=== PATIENT | female | born 1975 | race Caucasian/White ===

== ENCOUNTER 2021-01-05 14:34 | Emergency (ER) | payer MEDICAID ==
[~2021-01-05] VITALS: Ht 154.9 cm; Wt 59.1 kg
[2021-01-05 14:39] VITALS: BP 142/76
[2021-01-05] MEDS ORDERED: ACET-3385 PO (14:39)
[2021-01-05] MEDS ORDERED: ACETAMINOPHEN 325 MG TABLET PO ONE (16:15)
[2021-01-05 16:26] LABS: COVID AG,FIA SOURCE NASOPHARYNGEAL
== END 2021-01-05 16:30 | disposition home or self-care (01) ==
LOC: EMS 14:34
DX: M79.10 Myalgia, unspecified site (principal); R68.83 Chills (without fever); Z20.822 Contact with and (suspected) exposure to COVID-19; Z88.0 Allergy status to penicillin
CPT/HCPCS: 87426; 99283; C9803; U0003

== ENCOUNTER 2021-10-01 20:43 | Emergency (ER) | payer MEDICAID ==
[~2021-10-01] VITALS: Ht 165.1 cm; Wt 76.0 kg
[~2021-10-01 20:43] MED LIST: ACET-3385 PO
[2021-10-01 21:06] VITALS: BP 129/81
[2021-10-01] MEDS ORDERED: IBUP-2070 PO (21:35)
[2021-10-01] MEDS ORDERED: SULF-261 PO (21:36)
[2021-10-01] MEDS ORDERED: SULFAMETHOX/TRIMETH DS 800-160 MG/TABLET PO ONE (21:45)
[2021-10-01] MEDS ORDERED: IBUPROFEN 600 MG TABLET PO ONE (21:45)
== END 2021-10-01 21:58 | disposition home or self-care (01) ==
LOC: EMS 20:49
DX: L03.012 Cellulitis of left finger (principal); Z88.0 Allergy status to penicillin; Z79.899 Other long term (current) drug therapy
CPT/HCPCS: 99283

== ENCOUNTER 2022-07-23 14:13 | Emergency (ER) | payer MEDICAID ==
[~2022-07-23] VITALS: Ht 160 cm; Wt 63.6 kg
[~2022-07-23 14:13] MED LIST changes: +IBUP-2070 PO; +SULF-261 PO
[2022-07-23] MEDS ORDERED: KETOROLAC TROMETHAMINE 30 MG/ML VIAL IVP ONE (15:45)
[2022-07-23] MEDS ORDERED: ONDANSETRON HCL 4 MG/2 ML VIAL IVP ONE (15:45)
[2022-07-23] MEDS ORDERED: SODIUM CHLORIDE 0.9% 1,000 ML IV ONE (15:45)
[2022-07-23] MEDS ORDERED: ACETAMINOPHEN 500 MG TABLET PO ONE (15:45)
[2022-07-23 15:48] LABS: COVID AG,FIA SOURCE NASOPHARYNGEAL
[2022-07-23 16:03] LABS: APPEARANCE,URINE HAZY (CLEAR); BILIRUBIN,URINE NEGATIVE (NEGATIVE); GLUCOSE, URINE (UA) NEGATIVE (NEGATIVE); KETONES,URINE NEGATIVE (NEGATIVE); LEUKOCYTE ESTERASE ,URINE MODERATE (NEGATIVE); NITRATE,URINE POSITIVE (NEGATIVE); OCCULT BLOOD,URINE TRACE (NEGATIVE); PH,URINE 7.5 (5.0-8.0); PROTEIN,URINE TRACE mg/dL (NEGATIVE); SPECIFIC GRAVITIY, URINE 1.019 (1.003-1.030)
[2022-07-23 16:04] LABS: BASOPHILS % (AUTO) 0.4 % (0.0-2.0); EOSINOPHILS % (AUTO) 2.7 % (1.0-6.0); HEMATOCRIT 34.5 % (36-46); HEMOGLOBIN 11.9 g/dL (12.0-16.0); LYMPHOCYTES # (AUTO) 0.6 K/uL (1.0-4.8); LYMPHOCYTES % (AUTO) 14.1 % (22.0-44.0); MEAN CORPUSCULAR HEMOGLOBIN 29.4 pg (26.0-34.0); MEAN CORPUSCULAR HGB CONC 34.6 G/dL (31.0-37.0); MEAN CORPUSCULAR VOLUME 85 fL (80-100); MONOCYTES # (AUTO) 0.5 K/uL (0.1-1.0); MONOCYTES % (AUTO) 10.8 % (2.0-9.0); NEUTROPHILS # (AUTO) 3.2 K/uL (1.8-7.7); PLATELET COUNT (AUTO) 237 K/uL (150-450); RED BLOOD CELL COUNT(AUTO) 4.06 MIL/uL (4.00-5.20); RED CELL DISTRIBUTION WIDTH 12.6 % (11.5-14.5)
[2022-07-23 16:16] LABS: CARBON DIOXIDE 26 mmol/L (22-29); CHLORIDE 101 mmol/L (98-107); POTASSIUM 3.6 mmol/L (3.5-5.1); SODIUM SERUM 134 mmol/L (136-145)
[2022-07-23 16:17] LABS: ANION GAP 7 mmol/L (8-16); CALCIUM, TOTAL 8.8 mg/dL (8.8-10.5); CREATININE 0.79 mg/dL (0.60-1.30); GLUCOSE,RANDOM 104 mg/dL (70-110); UREA NITROGEN, BLOOD 9 mg/dL (7-18)
[2022-07-23 16:18] LABS: BACTERIA,URINE Moderate /HPF (None Seen); SQUAMOUS EPITHELIAL CELL,UR Moderate /LPF (None Seen)
[2022-07-23 16:21] LABS: GLOMERULAR FILTR. RATE CALC > 60 mL/min (>60)
[2022-07-23 16:23] LABS: INFLUENZA TYPE A NEGATIVE FOR TYPE A (NEGATIVE); INFLUENZA TYPE B NEGATIVE FOR TYPE B (NEGATIVE)
[2022-07-23 16:24] LABS: LACTIC ACID 0.9 mmol/L (0.4-2.0)
[2022-07-23 16:30] LABS: HCG,QUANTITATIVE 1 mIU/mL (0-6)
[2022-07-23] MEDS ORDERED: CefTRIAXone 1 GM/DEXTROSE 50 ML IV ONE (16:45)
[2022-07-23 17:15] VITALS: BP 133/79
[2022-07-23] MEDS ORDERED: CEPH-558 PO (17:15)
[2022-07-23] MEDS ORDERED: IBUP-2070 PO (17:22)
== END 2022-07-23 17:33 | disposition home or self-care (01) ==
LOC: EMS 14:14
DX: U07.1 COVID-19 (principal); N39.0 Urinary tract infection, site not specified; Z98.890 Other specified postprocedural states; Z88.0 Allergy status to penicillin
CPT/HCPCS: 99284; 96365; 96375; 96361; 87426; 80048; 81001; 83605; 84702; 85025; 87804; 36415; 87086; 87186; J0696; J1885; J2405; J7030